=== PATIENT | female | born 1965 | race Caucasian/White ===

== ENCOUNTER → 2020-05-15 | Outpatient (CLI) | payer OTHER ==
[~2020-05-15] MED LIST: ATENOLOL50 MG PO; HYDROCODON-ACE1 EAC4 PO; NEURONTIN800 MG PO; TRAZODONE HCL50 MG PO; ULTRAM50 MG PO; VENLAFAXINE HCL75 M2 PO; VITAMIN B12 PO; VITAMIN D PO
== END ==
LOC: OPSV2 10:30
DX: Z01.818 Encounter for other preprocedural examination (principal)

== ENCOUNTER → 2020-05-20 | Day surgery (SDC) | payer OTHER | END | disposition home or self-care (01) | LOC: OR 07:26 | PROVIDERS: Orthopaedic Surgery | PROC: 01N50ZZ Release Median Nerve, Open Approach (ICD-10-PCS; principal; 2020-05-20 07:30) | DX: G56.03 Carpal tunnel syndrome, bilateral upper limbs (principal); M19.90 Unspecified osteoarthritis, unspecified site; F17.210 Nicotine dependence, cigarettes, uncomplicated; I10 Essential (primary) hypertension; G89.29 Other chronic pain; M54.9 Dorsalgia, unspecified; Z20.822 Contact with and (suspected) exposure to COVID-19; Z86.718 Personal history of other venous thrombosis and embolism; Z79.899 Other long term (current) drug therapy; Z79.891 Long term (current) use of opiate analgesic | CPT/HCPCS: J0690; J1100; J2001; J2250; J2405; J2704; J3010; J7120 ==